=== PATIENT | female | born 1950 | race Caucasian/White ===

== ENCOUNTER → 2024-08-11 | Outpatient (CLI) | payer MEDICARE, MEDICAID, SELFPAY ==
--- NOTE | 2024-08-11 11:30 | XR_ITS ---
Examination: CTA abdominal aorta iliofemoral runoff. 2-D sagittal coronal reconstructions. 3-D reconstructions, vascular August 11, 2024 1333 hrs. Indications: Nonhealing bilateral foot ulcers beginning 6 months ago Technique: Multiple CTA images of the abdominal aorta iliofemoral runoff arterial vessels, 2.0 mm slice thickness, post intravenous administration 130 cc [id number] 2-D sagittal coronal reconstructions. 3-D reconstructions, vascular 3-D postprocessing, including vascular maximum intensity projection images, 3-D volume rendering Low dose protocols were performed. One or more of the following dose reduction techniques were used; automated exposure control, adjustment of the mA and/or KV according to patient size, use of iterative reconstruction technique. Findings: No focal liver or splenic lesions Small gallstones No pancreatic or adrenal mass 2 mm upper pole nonobstructing left renal calculus No bowel obstruction Normal appendix Colonic diverticulosis Atrophic uterus Heavy abdominal aortic calcification no aneurysmal dilatation No critical stenoses common iliac and external iliac or common femoral arteries Right superficial femoral artery no critical stenoses Popliteal artery on the right intact Right trifurcation arterial vessels fill of the ankle Left superficial femoral artery shows 90% short segment stenosis distally image 397 Popliteal artery intact Trifurcation arteries on the left fill to the ankle Impression: 2 mm upper pole nonobstructing left renal calculus 90% short segment stenosis distal left superficial femoral artery Trifurcation arteries bilaterally fill to the ankle .
== END | disposition home or self-care (01) ==
PROVIDERS: PCP Hospitalist; Referring Provider Surgery Vascular Surgery; Visit Provider Surgery Vascular Surgery
DX: N20.0 Calculus of kidney (principal); I70.202 Unspecified atherosclerosis of native arteries of extremities, left leg
CPT/HCPCS: 75635; A4649; Q9967

== ENCOUNTER 2024-10-19 07:14 | Emergency (ER) | payer MEDICARE, MEDICAID, SELFPAY | END 2024-10-19 16:00 | disposition home or self-care (01) | PROVIDERS: Emergency Provider Emergency Medicine; PCP Hospitalist; Referring Provider Emergency Medicine | DX: S91.111A Laceration without foreign body of right great toe without damage to nail, initial encounter (principal); X58.XXXA Exposure to other specified factors, initial encounter; S93.501A Unspecified sprain of right great toe, initial encounter | CPT/HCPCS: 12004; 73630; 99283 ==

== ENCOUNTER 2024-11-17 23:33 | Emergency (ER) | payer MEDICARE, MEDICAID, SELFPAY ==
[2024-11-17 23:46] VITALS: PULSE 73; RESP 19; TEMP 36.3; O2SAT 97
--- NOTE | 2024-11-17 23:49 | XR_ITS ---
Examination: CT maxillofacial, without intravenous contrast. 2-D sagittal reconstructions. 3-D reconstructions. Date and time of exam:November 18, 2024 1411 hours INDICATIONS: Patient fell today with injury to the face, facial pain CTDI: vol (mGy):47.7 DLP: (mGycm):659 Technique: Multiple axial images of maxillofacial region, 3.0 mm slice thickness. 2-D sagittal and coronal reconstructions. 3-D reconstructions. Low dose protocols were performed. One or more of the following dose reduction techniques were used; automated exposure control, adjustment of the mA and/or KV according to patient size, use of iterative reconstruction technique. Findings: These images do not include the frontal bone or the entire orbits No blood in the maxillary antra No nasal bone fracture, no depression zygomatic arches Maxilla and mandible are intact IMPRESSION: Incomplete study, which does not include the frontal bone and most of the orbits No acute fracture detected.
--- NOTE | 2024-11-17 23:49 | XR_ITS ---
Examination: CT brain head without contrast. 2-D sagittal coronal reconstructions Date and time of exam:November 18, 2024 0211 hours INDICATIONS: Patient fell today with image of the head, head pain CTDI: vol (mGy):51.3 DLP: (mGycm):983 Technique: Multiple CT axial sections of the brain have been obtained, 5 mm slice thickness. Contrast has not been administered. 2-D sagittal, coronal reconstructions have been obtained Low dose protocols were performed. One or more of the following dose reduction techniques were used; automated exposure control, adjustment of the mA and/or KV according to patient size, use of iterative reconstruction technique. Findings: No significant ventricular enlargement. Intra-axial or extra-axial hemorrhage density is not seen. No mass effect or midline shift Basal cisterns are not remarkable. Fourth ventricle is midline. Cranial vault intact. Impression: Negative for acute hemorrhage, mass effect or midline shift
--- NOTE | 2024-11-17 23:50 | PD.EDFALL ---
ED Fall Injury RME/HPI General Chief Complaint: Fall Stated Complaint: FALL Time Seen by Provider: 11/17/24 23:49 Arrival date/time: 11/17/24 23:33 RME / HPI RME / HPI Narrative: Dr. Reyes?s Main ED Evaluation: 74yo female with a history of IDDM, HTN, HLD, dysphagia, COPD, hypothyroidism BIBA from [facility] presents to the ED for a chief complaint of ground-level fall. Per EMS, patient accidentally rolled off her bed and hit her face. Patient denies any loss of consciousness. She is not on any blood thinners. Patient denies any neck pain, chest pain, abdominal pain, shortness of breath or any other associated symptoms. NKA. Related Data Home Medications ?Medication ?Instructions ?Recorded ?Confirmed atorvastatin 40 mg tablet 40 mg PO QDAY 02/19/19 09/12/23 ferrous sulfate 325 mg (65 mg 325 mg PO QDAY 02/19/19 09/12/23 iron) tablet folic acid 1 mg tablet 1 mg PO QDAY 02/19/19 09/12/23 levothyroxine 75 mcg tablet 75 mcg PO QDAY 02/19/19 09/12/23 metoprolol succinate 25 mg 25 mg PO QDAY 02/19/19 09/12/23 tablet,extended release 24 hr bumetanide 1 mg tablet 2 mg PO QDAY 04/29/20 09/12/23 bisacodyl 5 mg tablet 10 mg PO QDAY 09/12/23 09/12/23 lactulose 10 gram/15 mL oral 20 g PO QDAY PRN Constipation 09/12/23 09/12/23 solution linagliptin 5 mg tablet (Tradjenta) 5 mg PO BID 09/12/23 09/12/23 Held on 09/14/23. Instructions: Resume on 09/21/23. Hold for one week as insulin regimen was adjusted. Monitor blood glucose and resume if not controlled with new insulin regimen. magnesium hydroxide 400 mg/5 mL 30 ml PO Q72H 09/12/23 09/12/23 oral suspension (Milk of Magnesia) mirabegron 25 mg tablet,extended 25 mg PO QDAY 09/12/23 09/12/23 release 24 hr (Myrbetriq) multivitamin 1 tab PO QDAY 09/12/23 09/12/23 Previous Rx's ?Medication ?Instructions ?Recorded collagenase clostridium histo. 250 1 applic top QDAY #15 grams 09/14/23 unit/gram topical ointment (Santyl) Allergies Allergy/AdvReac Type Severity Reaction Status Date / Time No Known Allergies Allergy Verified 07/25/23 15:37 Review of Systems Review of Systems Systems Reviewed: All systems reviewed, normal except as documented Past Medical History Past Medical History CARDIAC: Positive Cardiac Disorders, Hypercholesterolemia and Hypertension; Negative Congestive Heart Failure RESPIRATORY: Negative Chronic Obstructive Pulmonary Disease (COPD) GENITOURINARY: Negative Renal Disease ENDOCRINE: Positive Endocrine Disorders, Diabetes Mellitus Type 2 and Hypothyroidism; Negative Diabetes Mellitus Type 1 OTHER HISTORY: Positive Blood Transfusions Social History SMOKING STATUS: Never smoker SUBSTANCE USE: does not use ED Exam Narrative Physical exam: GEN. APPEARANCE: The patient is alert awake oriented X-3 in no distress, lying down comfortably, does not look ill/toxic. Patient has good eye contact. Patient is cooperative. VITALS: All vitals were reviewed and the pulse ox is 97% on room air which is normal according to my interpretation. HEENT: Normocephalic, frontal hematoma, face is stable, dry blood to bilateral nares, no septal hematoma. Pupils are equal and reactive. Oral mucosa is moist. Patent Nares NECK: Supple, nontender, no thyromegaly, no meningismus, no JVD CHEST: Symmetrical, atraumatic, and with equal expansion , Nontender on palpation no deformity and no crepitus. CARDIOVASCULAR: Heart regular rhythm no murmur or gallop rub or extra beats. LUNGS: Clear to auscultation bilaterally with symmetrical chest rise. No laboring tachypnea or wheezing. No intercostal subcostal retraction. No rales and no rhonchi. ABDOMEN: Soft, flat, nontender to palpation, no guarding or rebound tenderness. There are no abnormal masses palpated. Active and normal bowel sounds. EXTREMITIES: Nontender. No edema. No cyanosis. Patient is able to move all 4 extremities well, with full ROM and good CSM. SKIN: Warm and dry, no jaundice or rashes noted. NEURO: Patient is MACK x 4, Cranial nerves II through XII grossly intact. There is no focal neurologic deficits noted. GCS is 15, PNS and [employer] appear grossly intact. PSYCHIATRIC: Patient is in normal mood and affect. Course Quality Measures none Orders Category Date Time Status CT Screening NOW Care 11/17/24 23:50 Active EKG (ED ONLY) *Do not use* NOW Care 11/17/24 23:51 Completed In and Out Catheter X1 Care 11/17/24 23:[address] facial bones wo con Stat Exams 11/17/24 23:[address] head/brain wo con Stat Exams 11/17/24 23:49 Taken EKG (ED Only) Stat Exams 11/17/24 23:49 Ordered CBC Stat Lab 11/17/24 23:58 Completed Comprehensive Metabolic Panel Stat Lab 11/17/24 23:58 Completed Troponin I Stat Lab 11/17/24 23:58 Completed Urinalysis Stat Lab 11/18/24 01:00 Completed Acetaminophen Tab [Tylenol ES Tab] Med 11/17/24 23:49 Discontinued 500 mg PO X1 ONE Vital Signs Vital signs: Vital Signs Temperature 97.3 F 11/17/24 23:46 Pulse Rate 73 11/17/24 23:46 Respiratory Rate 19 11/17/24 23:46 Pulse Oximetry (%) 97 11/17/24 23:46 Oxygen Delivery Method Room Air 11/17/24 23:46 Fall MDM Narrative MDM Narrative:: Scribe Attestation: 11/17/24 - Kellie Diez am scribing for and in the presence of Dr. Reyes. Labs unremarkable, EKG without evidence of ischemia or arrhythmia, CT brain and max face unremarkable. On reevaluation patient hemodynamically stable not distressed will discharge to home with close return precautions Patient data External records reviewed:: [facility] previous records (Per chart review, patient was seen here on 03/24/24 for chronic ulcer of the ankle.) and EMS form Clinical information provided by:: patient and EMS Social determinants that could affect healthcare access:: housing (SNF resident) Patient has the following chronic illnesses:: IDDM, HTN, HLD, dysphagia, COPD, hypothyroidism How is presenting disease/condition affected by chronic disease/condition?: uneffected by Evaluation data The following diagnostics were reviewed and interpreted by me:: lab results, radiology exam(s) and EKG tracing(s) Lab and/or radiology exams considered but not ordered:: none Interpretation Summary: WBC normal, HnH 9.2/29.2, Creatinine 1.4 (which is the patient's baseline), UA is negative for UTI. EKG done at 0008, NSR, rate of 72, normal intervals, occasional PVCs, no acute ischemia, according to my interpretation. --------- [employer] Preliminary Report Draft Patient: CRISTIAN AQUINO [facility]. Record#: [id number] Birthdate: 1950 Age/Sex: 74 / F Location: [facility] Attending Dr: Ordering Physician: Date of Service: Procedure(s): Accession Number(s): cc: ~ CT scan of the head without intravenous contrast (axial sections with sagittal and coronal reformats). November 18, 2024 021 hours Clinical History: trauma Comparison: None Findings: There is no intracranial hemorrhage, extra-axial collection, mass, mass-effect or midline shift. There is good porter-white differentiation. There is no CT evidence of acute large vascular territorial infarct. Ventricles are not enlarged or effaced. There is atherosclerotic calcification along the intracranial vertebral arteries and carotid siphons. Visualized paranasal sinuses and tympanomastoid cavities are clear. The bony calvarium is intact. Superficial scalp soft tissue contusion noted overlying the frontal calvarium. Impression: No intracranial hemorrhage, mass-effect or midline shift. No CT evidence of acute large vascular territorial infarct. Report Electronically Signed By: Justice Morel 11/18/2024 3:24:48 AM [employer] Preliminary Report Draft Patient: CRISTIAN AQUINO [facility]. Record#: [id number] Birthdate: 1950 Age/Sex: 74 / F Location: [facility] Attending Dr: Ordering Physician: Date of Service: Procedure(s): Accession Number(s): cc: ~ CT maxillofacial without intravenous contrast (axial sections with sagittal and coronal reformats). November 18, 2024210 hours Clinical History: Trauma. Comparison: None Findings: Orbits are better visualized on the concurrent CT head. There is no fracture, dislocation or other acute osseous abnormality of the imaged face. Orbits are intact. Superficial soft tissues of the imaged face are intact. Paranasal sinuses and tympanomastoid cavities are clear. Impression: No acute osseous abnormality of the face. Report Electronically Signed By: Justice Morel 11/18/2024 3:37:00 AM [EST Medications / Prescriptions Medications or Prescriptions considered but not ordered:: none Medication administrations:: Medication Administration History Discontinued Medications Acetaminophen (Acetaminophen 500 Mg Tablet) 500 mg PO X1 ONE Stop: 11/17/24 23:50 Last Admin: 11/18/24 00:44 Dose: 500 mg Documented By: CG see above Consultations Consultation(s) initiated? (list below): No Diagnosis Fall Differential Diagnosis: other (ICH, skull fx, facial injury, syncope, arrhythmia, metabolic disturbance) Most likely diagnosis given after review of the tests above:: see clinical impression below Admission Indicated Admission indicated?: not indicated Explain why admission is indicated or not indicated:: Diagnostics are unremarkable, patient is stable to be discharged home. Admission Request Was there a request for admission?: No Disposition Plan Disposition Plan: Discharge Discharge Attestation Discharge Attestation: The patient and all family members were given an opportunity to ask questions and understood the discharge instructions. Discharge instructions specifically effects, indications for sooner follow up or return to the emergency department, and the expected course of current diagnosis. Patient condition: Stable Discharge Plan Plan Patient Disposition: HOME (Self Care) Prescriptions/Referrals Prescriptions/Med Rec: No Action bumetanide 1 mg Tablet 2 mg PO QDAY atorvastatin 40 mg Tablet 40 mg PO QDAY levothyroxine 75 mcg Tablet 75 mcg PO QDAY ferrous sulfate 325 mg (65 mg iron) Tablet 325 mg PO QDAY folic acid 1 mg Tablet 1 mg PO QDAY metoprolol succinate 25 mg Tablet Extended Release 24 Hr 25 mg PO QDAY multivitamin Tablet 1 tab PO QDAY magnesium hydroxide [Milk of Magnesia] 400 mg/5 mL Suspension 30 ml PO Q72H bisacodyl 5 mg Tablet 10 mg PO QDAY lactulose 10 gram/15 mL Solution 20 g PO QDAY PRN (Reason: Constipation) Tradjenta 5 mg Tablet 5 mg PO BID Myrbetriq 25 mg Tablet Extended Release 24 Hr 25 mg PO QDAY Santyl 250 unit/gram Ointment 1 applic top QDAY Qty: 15 0RF Referrals: No Primary/Family,Physician [Primary Care Provider] - In 1 week Problem List Clinical Impression: Fall Patient/Caregiver Discharge Instructions Discharge Activity: activity as tolerated Education Materials: ED Fall with Uncertain Cause Print Language: Divehi Stand Alone Forms: Lise Award Info., Patient Portal Info Letter
[2024-11-18 00:14] LABS: Basophils # (Auto) 0.1 Thou/mm3 (0.0-0.2); Basophils % (Auto) 1 % (0-2.5); Eosinophils # (Auto) 0.6 Thou/mm3 (0.0-0.5); Eosinophils % (Auto) 7 % (0-10); Hematocrit 29.2 % (36.0-46.0); Hemoglobin 9.2 g/dL (12.0-16.0); Immature Granulocytes % (Auto) 0 % (0-0); Immature Granulocytes Auto 0.02 Thou/mm3 (0.00-0.00); Lymphocytes # (Auto) 1.8 Thou/mm3 (1.0-4.8); Lymphocytes % (Auto) 20 % (10-50); Mean Corpuscular HGB Conc 31.5 g/dl (31.0-37.0); Mean Corpuscular Hemoglobin 23.3 pg (25.0-35.0); Mean Corpuscular Volume 74 fL (80-100); Monocytes # (Auto) 0.6 Thou/mm3 (0.0-0.8); Monocytes % (Auto) 7 % (0-12); Neutrophils # (Auto) 5.8 Thou/mm3 (1.8-7.7); Neutrophils % (Auto) 65 % (37-80); Nucleated Red Blood Cell % 0 /100 WBC (0); Platelet Count 327 Thou/mm3 (140-440); RDW Standard Deviation 47.9 fL (36.4-46.3); Red Blood Count 3.95 Miln/mm3 (4.00-5.20)
[2024-11-18 00:15] VITALS: PULSE 72; RESP 13; O2SAT 97; BMI 53.6
[2024-11-18 00:36] LABS: Alanine Aminotransferase 22 U/L (10-49); Albumin, Serum 3.7 gm/dL (3.4-4.8); Albumin/Globulin Ratio 1.1 (1.2-2.2); Alkaline Phosphatase 149 U/L (46-116); Anion Gap 9 (7-16); Aspartate Amino Transferase 25 U/L (0-34); BUN/Creatinine Ratio 24 Ratio (12-20); Bilirubin,Total 0.2 mg/dL (0.3-1.2); Blood Urea Nitrogen 34 mg/dL (9-23); Calcium 8.7 mg/dL (8.3-10.6); Calcium (Corrected) 8.9 mg/dL (8.5-10.1); Carbon Dioxide 29.5 mMol/L (20.0-31.0); Chloride 102 mMol/L (98-107); Creatinine (Component) 1.4 mg/dL (0.6-1.3); Globulin 3.3 gm/dL (2.3-3.5); Glucose 108 mg/dL (74-106); Osmolality,Calculated 288 (275-295); Potassium 4.3 mMol/L (3.4-5.1); Sodium 140 mMol/L (136-145); Troponin I < 0.020 ng/mL (0.0-0.045); eGFR 40 See Note
[2024-11-18 00:44] VITALS: TEMP 36.4
[2024-11-18] MEDS: ACETAMINOPHEN 500 MG TABLET PO (00:44)
[2024-11-18 00:59] VITALS: BP 179/83; PULSE 77; RESP 16; TEMP 36.4; O2SAT 98
[2024-11-18 01:30] LABS: Collection Type, Urine Catheter
[2024-11-18 01:39] LABS: Bilirubin,Urine Negative (Negative); Blood,Urine Negative (Negative); Clarity,Urine Clear (Clear/Hazy); Color,Urine Lt-Yellow (Lt Yel-Yel); Glucose, Urine Negative (Negative); Ketones,Urine Negative (Negative); Leukocyte Esterase,Urine Negative (Negative); Nitrite,Urine Negative (Negative); PH,Urine 6.5 (5.0-7.0); Protein,Urine 1+ (Neg - Trace); RBC,Urine 1 /hpf (0-3); Specific Gravity,Urine 1.014 (1.001-1.035); Squamous Epithelial Cell,Urine 1 /hpf (0-5); Urobilinogen,Urine Negative mg/dL (0.0-1.0); WBC,Urine 1 /hpf (0-5)
[2024-11-18 02:51] VITALS: BP 177/79; PULSE 73; RESP 17; TEMP 36.3; O2SAT 97
--- NOTE | 2024-11-18 03:25 | PRELIM_ITS ---
CT scan of the head without intravenous contrast (axial sections with sagittal and coronal reformats). November 18, 2024 0211 hours Clinical History: trauma Comparison: None Findings: There is no intracranial hemorrhage, extra-axial collection, mass, mass-effect or midline shift. There is good porter-white differentiation. There is no CT evidence of acute large vascular territorial infarct. Ventricles are not enlarged or effaced. There is atherosclerotic calcification along the intracranial vertebral arteries and carotid siphons. Visualized paranasal sinuses and tympanomastoid cavities are clear. The bony calvarium is intact. Superficial scalp soft tissue contusion noted overlying the frontal calvarium. Impression: No intracranial hemorrhage, mass-effect or midline shift. No CT evidence of acute large vascular territorial infarct. Report Electronically Signed By: Justice Morel 11/18/2024 3:24:48 AM [EST]
--- NOTE | 2024-11-18 03:37 | PRELIM_ITS ---
CT maxillofacial without intravenous contrast (axial sections with sagittal and coronal reformats). November 18, 2024 0211 hours Clinical History: Trauma. Comparison: None Findings: Orbits are better visualized on the concurrent CT head. There is no fracture, dislocation or other acute osseous abnormality of the imaged face. Orbits are intact. Superficial soft tissues of the imaged face are intact. Paranasal sinuses and tympanomastoid cavities are clear. Impression: No acute osseous abnormality of the face. Report Electronically Signed By: Justice Morel 11/18/2024 3:37:00 AM [EST]
[2024-11-18 05:43] VITALS: BP 176/84; PULSE 83; RESP 18; TEMP 36.6; O2SAT 96
--- NOTE | 2024-11-18 05:52 | PC.NURSE ---
Report called to [facility], report received by JEANNETTE Rainey
== END 2024-11-18 06:01 | disposition home or self-care (01) ==
PROVIDERS: Emergency Provider Emergency Medicine
DX: S09.93XA Unspecified injury of face, initial encounter (principal); W18.30XA Fall on same level, unspecified, initial encounter; E11.9 Type 2 diabetes mellitus without complications; I10 Essential (primary) hypertension; J44.9 Chronic obstructive pulmonary disease, unspecified; E78.5 Hyperlipidemia, unspecified; E03.9 Hypothyroidism, unspecified
CPT/HCPCS: 36415; 70450; 70486; 80053; 81001; 84484; 85025; 93005; 99284; A9270

== ENCOUNTER 2024-11-18 22:36 | Emergency (ER) | payer MEDICARE, MEDICAID, SELFPAY ==
[2024-11-18 22:37] VITALS: BP 188/72; PULSE 74; RESP 17; TEMP 36.9; O2SAT 96
--- NOTE | 2024-11-18 23:17 | XR_ITS ---
Examination: CT cervical spine without contrast 2-D sagittal reconstructions 2-D coronal reconstructions 3-D reconstructions. Exam date and time:November 19, 2024 1257 hours Indication ground-level fall today with injury to the neck, neck pain CTDI:vol (mGy) 70.3 DLP: (mGycm) 340 Technique: Multiple 2 mm axial sections of the cervical spine have been obtained. The coronal and sagittal reconstructions have been obtained. 3-D reconstructions have been obtained. Low dose protocols were performed. One or more of the following dose reduction techniques were used; automated exposure control, adjustment of the mA and/or KV according to patient size, use of iterative reconstruction technique. Findings: Axial sections demonstrate intact base of the skull. Marked ossification of the posterior longitudinal ligament C1 exhibit satisfactory relationship to the odontoid. No acute cervical vertebral body fracture seen. Alignment posterior spinous processes satisfactory. Impression: No acute cervical fracture. Marked prominent ossification of the posterior longitudinal ligament producing spinal stenosis, elective MRI cervical spine follow up would best assess extent of any cervical cord compression
--- NOTE | 2024-11-18 23:17 | XR_ITS ---
Examination: CT maxillofacial, without intravenous contrast. 2-D sagittal reconstructions. 3-D reconstructions. Date and time of exam:November 19, 2024 at 0057 hours INDICATIONS: Ground-level fall today with injury to the face, facial pain CTDI: vol (mGy):20.8 DLP: (mGycm):370 Technique: Multiple axial images of maxillofacial region, 3.0 mm slice thickness. 2-D sagittal and coronal reconstructions. 3-D reconstructions. Low dose protocols were performed. One or more of the following dose reduction techniques were used; automated exposure control, adjustment of the mA and/or KV according to patient size, use of iterative reconstruction technique. Findings: Frontal bones intact with adjacent soft tissue swelling Orbital rims intact No nasal bone fracture. No depression zygomatic arches. Pterygoid plates maxilla intact Mandible detail is obscured by patient motion IMPRESSION: Limited study No acute fracture detected.
--- NOTE | 2024-11-18 23:17 | XR_ITS ---
Examination: CT brain head without contrast. 2-D sagittal coronal reconstructions Date and time of exam:November 19, 2024 0057 hours Comparison November 18, 2024 INDICATIONS: Ground-level fall today with injury to the head, head pain CTDI: vol (mGy):48.6 DLP: (mGycm):951 Technique: Multiple CT axial sections of the brain have been obtained, 5 mm slice thickness. Contrast has not been administered. 2-D sagittal, coronal reconstructions have been obtained Low dose protocols were performed. One or more of the following dose reduction techniques were used; automated exposure control, adjustment of the mA and/or KV according to patient size, use of iterative reconstruction technique. Findings: No significant ventricular enlargement. Intra-axial or extra-axial hemorrhage density is not seen. No mass effect or midline shift Basal cisterns are not remarkable. Fourth ventricle is midline. Cranial vault intact. Impression: Negative for acute hemorrhage, mass effect or midline shift
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
[2024-11-18 23:34] VITALS: PULSE 74; RESP 14; O2SAT 94; BMI 45.5
[2024-11-18] MEDS: ACETAMINOPHEN 500 MG TABLET PO (23:55)
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
--- NOTE | 2024-11-19 02:34 | PRELIM_ITS ---
CT scan of the cervical spine without intravenous contrast (axial sections with sagittal and coronal reformats). November 19, 2024 0057 hours Clinical History: trauma Comparison: None Findings: There is no fracture, traumatic subluxation or other acute osseous abnormality of the cervical spine. There is straightening of the cervical spine curvature with loss of normal cervical lordosis. There are multilevel degenerative disc changes and spondylosis of the cervical spine with multilevel foraminal stenosis. There is ossification of the posterior longitudinal ligament from the upper C2 level to the lower C6 level, effacing the ventral subarachnoid space and probably compressing the cervical cord. There is no prevertebral soft tissue swelling. Impression: No acute osseous abnormality of the cervical spine. Straightening of the cervical spine may indicate muscle spasm. Degenerative change. Ossification of the posterior longitudinal ligament. Recommend MRI cervical spine for further evaluation to evaluate degree of cord compression. Report Electronically Signed By: Justice Morel 11/19/2024 2:33:49 AM [EST]
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
--- NOTE | 2024-11-19 04:11 | PC.NURSE ---
JEANNETTE Rainey of [facility] updated on course of plan for patient at this time
[2024-11-19 06:05] VITALS: BP 181/96; PULSE 75; RESP 18; TEMP 36.8; O2SAT 98
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
[2024-11-19 07:40] VITALS: BP 165/88; PULSE 77; RESP 17; TEMP 36.5; O2SAT 98
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
[2024-11-19 10:32] VITALS: BP 174/86; PULSE 85; RESP 18; TEMP 37; O2SAT 95
== END 2024-11-19 10:33 | disposition skilled nursing facility (03) ==
PROVIDERS: Emergency Provider Emergency Medicine; PCP Hospitalist
DX: S00.83XA Contusion of other part of head, initial encounter (principal); W19.XXXA Unspecified fall, initial encounter; R29.6 Repeated falls; F03.90 Unspecified dementia, unspecified severity, without behavioral disturbance, psychotic disturbance, mood disturbance, and anxiety; M48.8X2 Other specified spondylopathies, cervical region; M48.02 Spinal stenosis, cervical region
CPT/HCPCS: 70450; 70486; 72125; 99284; A9270